=== PATIENT | female | born 1940 | race Hispanic/Latino ===

== ENCOUNTER → 2021-06-12 | Day surgery (SDC) | payer OTHER ==
[2021-06-09 15:04] LABS: BASOPHILS # (AUTO) 0.1 (0.0-0.1); BASOPHILS % 0.9 % (0.0-1.0); EOSINOPHILS # (AUTO) 0.1 (0.0-0.4); EOSINOPHILS % 1.9 % (0.0-6.0); HEMATOCRIT 31.5 % (34.2-44.1); HEMOGLOBIN 9.6 g/dL (12.0-16.0); LYMPHOCYTES % 39.7 % (18.0-39.1); MEAN CORPUSCULAR HEMOGLOBIN 26.3 pg (28-32); MEAN CORPUSCULAR HGB CONC 30.5 g/dL (31-35); MEAN CORPUSCULAR VOLUME 86.3 fL (81-99); MONOCYTES # (AUTO) 0.7 (0.2-0.8); MONOCYTES % 9.1 % (4.4-11.3); NEUTROPHILS # (AUTO) 3.6 (2.1-6.9); NEUTROPHILS % 48.3 % (38.7-80.0); PLATELET COUNT 405 x10e3/uL (140-360); RED BLOOD COUNT 3.65 x10e6/uL (3.6-5.1); RED CELL DISTRIBUTION WIDTH 13.9 % (11.7-14.4)
[~2021-06-12] MED LIST: ASPIRIN81 MG PO; FENTANYL CITRATE/PF 100MCG/2 ML INJ ONE; HYDROCHLOROTHIA25 MG; METFORMIN HCL500 MG PO; METOPROLOL SUCC50 MG PO; MIDAZOLAM HCL 2 MG/2 ML VIAL ONE; PHENYLEPHRINE HCL 1% 10 MG/ML VIAL ONE; PROPOFOL IV EMULSION 10 MG/ML 20 ML VIAL ONE; SIMVASTATIN20 MG PO; ZESTRIL40 MG PO
[2021-06-12 14:25] VITALS: BP 118/62
[2021-06-12 15:01] LABS: % IRON SATURATION 22 % (15-50); IRON 80 ug/dL (50-170); TOTAL IRON BINDING CAPACITY 370 ug/dL (261-478); TRANSFERRIN 264 mg/dL (180-382)
== END | disposition home or self-care (01) ==
LOC: OR 08:09 → EDSEX 09:30 → EDBD 09:30
PROVIDERS: ATTEND Internal Medicine Gastroenterology
DX: D64.89 Other specified anemias (principal); K29.50 Unspecified chronic gastritis without bleeding; K57.30 Diverticulosis of large intestine without perforation or abscess without bleeding; K64.8 Other hemorrhoids; K20.90 Esophagitis, unspecified without bleeding; E78.00 Pure hypercholesterolemia, unspecified; E11.9 Type 2 diabetes mellitus without complications; I10 Essential (primary) hypertension; E66.01 Morbid (severe) obesity due to excess calories; Z86.010 Personal history of colon polyps; Z68.27 Body mass index [BMI] 27.0-27.9, adult; Z88.0 Allergy status to penicillin; Z01.810 Encounter for preprocedural cardiovascular examination; Z01.812 Encounter for preprocedural laboratory examination; Z20.822 Contact with and (suspected) exposure to COVID-19; B96.81 Helicobacter pylori [H. pylori] as the cause of diseases classified elsewhere
CPT/HCPCS: 36415 ×2; 43239; 45378; 82607; 82746; 82948; 83540; 84466; 85025; 85045; 93005; J2370; J2704; U0002; J2250; J3010